=== PATIENT | female | born 1960 | race Caucasian/White ===

== ENCOUNTER 2021-06-02 11:00 | Emergency (ER) | payer OTHER, SELFPAY ==
[2021-06-02 11:04] VITALS: BP 170/62; PULSE 81; RESP 18; TEMP 36.7; O2SAT 99; BMI 25.2
--- NOTE | 2021-06-02 11:16 | ED.GENADULT ---
HPI - General Adult General Chief complaint: Skin/Abscess/Foreign Body Stated complaint: rash Time Seen by Provider: 06/02/21 11:15 Source: patient and family Limitations: no limitations History of Present Illness HPI narrative: Patient presents with a rash to her left upper extremity greater than right also neck. Symptoms ongoing the past few days similar episode in the past many years prior. Patient denies any pain but states the rash is very itchy. Patient has no known allergic contacts denies taking any medications denies history of diabetes . Patient denies shortness of breath fever chills. Related Data Previous Rx's Medication Instructions Recorded prednisone 40 mg PO DAILY 5 Days #10 tab 06/02/21 Allergies Allergy/AdvReac Type Severity Reaction Status Date / Time morphine [MORPHINE] Allergy Mild SLIGHT Unverified 08/09/20 16:46 RASH/ITCHING ciprofloxacin [Cipro] Allergy Unknown Verified 06/13/16 00:00 From Cipro Allergy Mild RASH Uncoded 08/09/20 16:46 Review of Systems Constitutional: Constitutional: Denies chills, Denies fever(s) and Denies headache(s) Eyes: Eyes: Denies diplopia ENT: Denies headache(s), Denies lip swelling, Denies sore throat and Denies throat swelling Cardiovascular: Cardiovascular: Denies chest pain and Denies dyspnea Respiratory: Respiratory: Denies cough and Denies dyspnea Gastrointestinal: Gastrointestinal: Denies nausea and Denies vomiting Musculoskeletal: Musculoskeletal: Reports no additional musculoskeletal complaints Neurologic: Denies headache(s) Allergic/Immunologic: Allergic/Immunologic: Denies lip swelling, Denies seasonal rhinorrhea and Denies throat swelling Comments: Positive rash to bilateral upper extremities neck PMFSH Past Medical History Attestation statement: The following information was validated with the patient. Social History Social History Advance Directives: No Advance Directives Information Provided: No Physical Exam Vital Signs: Vital Signs: Last Vital Signs Temp 98.0 F 06/02/21 11:04 Pulse 81 06/02/21 11:04 Resp 18 06/02/21 11:04 BP 170/62 H 06/02/21 11:04 Pulse Ox 99 06/02/21 11:04 Body Mass Index 25.2 vital signs have been reviewed as normal and appeared to be correct. Blood pressure normal. Heart rate normal. Respiration rate normal. Temperature normal. Oxygen saturation normal. Appearance: Alert. Oriented X3. No acute distress. Head: Normal external exam. Normocephalic. Atraumatic. No Cesar signs noted. No raccoon eyes noted Eyes: PERRLA. EOMI. ENT: Pharynx normal. Uvula midline. M Neck: Soft full range of motion CVS: Heart regular rate and rhythm no murmurs and rubs Respiratory: Breath sounds are clear to auscultation bilaterally. No accessory muscle use noted. Skin: patient has a raised maculopapular rash in left upper extremity greater than the right also axillas. Extremities: No lower extremity edema. Extremities exhibit normal range of motion. Extremities nontender. Neuro: Oriented X 3. No motor deficit. No sensory deficit. Reflexes normal. Course Course Course Narrative: Contact dermatitis zoster Urticaria Symptoms consistent with contact dermatitis will treat at this time. Discharge Plan Discharge Clinical Impression: Contact dermatitis Patient Disposition: Home, Self-Care Instructions: Contact Dermatitis (ED) Additional Instructions: continues to take Benadryl 2 tabs or 50 mg every 6 hours for itching Prescriptions: New prednisone 20 mg tablet 40 mg PO DAILY 5 Days Qty: 10 RF: 0
[2021-06-02] MEDS: predniSONE 20 MG TABLET 60 MG PO (11:29)
== END 2021-06-02 11:34 | disposition home or self-care (01) ==
PROVIDERS: Emergency Provider Emergency Medicine
DX: L25.9 Unspecified contact dermatitis, unspecified cause (principal)
CPT/HCPCS: 99283

== ENCOUNTER 2021-06-03 10:41 | Emergency (ER) | payer OTHER, SELFPAY ==
[2021-06-03 10:42] VITALS: BP 152/63; PULSE 83; RESP 16; TEMP 35.9; O2SAT 98; BMI 26.1
--- NOTE | 2021-06-03 11:07 | ED_ITS ---
HPI - General Adult General Chief complaint: General Medical Stated complaint: rash ? allergic reaction to meds Time Seen by Provider: 06/03/21 11:07 History of Present Illness HPI narrative: 60-year-old female who re-presented to the ED today with continued rash. Patient was seen yesterday and diagnosed with contact dermatitis started on prednisone and discharged home with outpatient follow-up. Patient returns today due to continued and progressive rash. Is worried that the prednisone prescribed may be contributing to worsening symptoms. Patient denies any chest pain or shortness of breath denies any nausea vomiting or diarrhea. Denies any known fevers or chills although states she did feel very flushed and hot last evening. States the rash has been ongoing for 1 week. States she exhausted Benadryl at home without improvement of symptoms. States she is using [id number] hydrocortisone without improvement of symptoms. States she does not have primary care at this time as she is trying to switch physicians. Due to concerning continued discomfort she felt she needed to be seen. Related Data Previous Rx's Medication Instructions Recorded prednisone 40 mg PO DAILY 5 Days #10 tab 06/02/21 cetirizine [Zyrtec] 10 mg PO DAILY PRN #30 tab 06/03/21 hydrocortisone 1 appl TOPICAL QD-TID PRN #454 g 06/03/21 Allergies Allergy/AdvReac Type Severity Reaction Status Date / Time morphine [MORPHINE] Allergy Mild SLIGHT Unverified 08/09/20 16:46 RASH/ITCHING ciprofloxacin [Cipro] Allergy Unknown Verified 06/13/16 00:00 From Cipro Allergy Mild RASH Uncoded 08/09/20 16:46 Review of Systems Review of Systems: Constitutional : No Weight loss, No Fever, No Chills, No Night Sweats, No Fatigue, No Malaise ENT/Mouth : No Hearing loss, No Ear Pain, No Nasal Congestion, No Sinus Pain, No Hoarseness, No sore throat, No Rhinorrhea, No Swallowing Difficulty Eyes: No Eye Pain, No Swelling, No Redness, No Foreign Body, No Discharge, No Vision Changes Cardiovascular : No Chest Pain, No SOB, No Dyspnea on Exertion, No Orthopnea, No Edema, No Palpitations Respiratory : No Cough, No Sputum, No Wheezing, No Smoke Exposure, No Dyspnea Gastrointestinal : No Nausea, No Vomiting, No Diarrhea, No Constipation, No abdominal Pain, No Hematochezia, No Melena Genitourinary : no irregular bleeding, No Dysuria, No Urinary Frequency, No Hematuria, No Urinary Incontinence, No Urgency, No Flank Pain, No Urinary Flow Changes, No Hesitancy Musculoskeletal : No joint pain, No Myalgias, No Joint Swelling Skin : + rash Neuro : No Weakness, No Numbness, No Paresthesias, No Loss of Consciousness, No Dizziness, No Headache Psych : No Anxiety/Panic, No Depression, No SI/HI/AH/VH, No Social Issues, Heme/Lymph: No Bruising, No Bleeding,No Lymphadenopathy Endocrine : No Polyuria, No Polydipsia, No Temperature Intolerance [facility] Past Medical History Attestation statement: The following information was validated with the patient. Source: old records reviewed and obtained from family Social History Social History Advance Directives: No Advance Directives Information Provided: No Physical Exam Vital Signs: Vital Signs: Last Vital Signs Temp 96.7 F L 06/03/21 10:42 Pulse 83 06/03/21 10:42 Resp 16 06/03/21 10:42 BP 152/63 H 06/03/21 10:42 Pulse Ox 98 06/03/21 10:42 Body Mass Index 26.1 vital signs have been reviewed as normal and appeared to be correct. Blood pressure normal. Heart rate normal. Respiration rate normal. Temperature normal. Oxygen saturation normal. Appearance: Alert. Oriented X3. No acute distress. Head: Normal external exam. Normocephalic. Atraumatic. No Cesar signs noted. No raccoon eyes noted Eyes: Conjunctiva and sclera normal. ENT: EAC normal. Moist mucous membranes. No drooling noted. No muffled voice noted. Neck: Normal inspection. Neck supple. FROM. No meningeal signs. CVS: Pulses normal throughout. Respiratory: No respiratory distress. Painless inspiration. No accessory muscle usage noted Abdomen: No visible injury noted. Back: Full range of motion noted. Skin: Skin warm and dry. Normal skin color. Normal skin turgor. Patient with Mild erythematous rash to anterior chest, bilateral upper extremities and posterior neck. Blanchable nature. No vesicles lesions or ulcerations noted. Extremities: No lower extremity edema. Extremities exhibit normal range of motion. Neuro: Oriented X 3. No motor deficit. No sensory deficit. Medical Decision Making MDM Narrative Medical decision making narrative: Patient's vital signs are stable and she is afebrile. Patient presenting to the emergency department with reports of continued rash. Patient awake alert appropriate vital signs within normal limits no acute distress at this time. Rash is not alarming with blanchable nature mild erythema only involving the upper extremities/ chest. Patient has not taken any additional medications since time of discharge yesterday have encouraged her to continue steroids I do not think she is having an anaphylactic reaction from them. Also advised adding Zyrtec as Benadryl has not been helpful and higher concentration of hydrocortisone. Will refer to Dermatology as this is occurred many times in patient's life and she is quite frustrated. No other secondary signs of acute injury or trauma. Will discharge home at this time. Discharge Plan Discharge Clinical Impression: Rash Patient Disposition: Home, Self-Care Instructions: Contact Dermatitis (ED) Additional Instructions: You were seen in the emergency department today for continued rash. It is still uncertain what is causing a rash but there is no concerning signs or symptoms on today's exam. Please continue prednisone as directed this is important as it will likely be the only thing that helps her rash acutely. Start Zyrtec daily, you will additionally prescribe increased concentration of hydrocortisone cream in attempts to help rash. Avoid hot showers. Follow up w [facility] in the next week if symptoms persist. Return to the ED if he developed nausea, fever, worsening or progressive rash that spreads rapidly or shortness of breath. Prescriptions: New hydrocortisone 2.5 % ointment 1 appl topical QD-TID PRN (Reason: itching) Qty: 454 RF: 0 cetirizine [Zyrtec] 10 mg tablet 10 mg PO DAILY PRN (Reason: allergy symptoms) Qty: 30 RF: 0 No Action prednisone 20 mg tablet 40 mg PO DAILY 5 Days Qty: 10 RF: 0 Referrals: Mariella Dean MD [Physician] - 1 week Interventions: ED Discharge Assessment Last Done: 06/03/21 12:09 Discharge Date/Time: 06/03/21 12:12 Print Language: [place]ian
[2021-06-03] MEDS: predniSONE 20 MG TABLET 40 MG PO (11:55)
== END 2021-06-03 12:12 | disposition home or self-care (01) ==
PROVIDERS: Emergency Provider Emergency Medicine
DX: R21 Rash and other nonspecific skin eruption (principal)
CPT/HCPCS: 99283

== ENCOUNTER 2022-04-09 13:14 | Outpatient (REF) | payer OTHER, SELFPAY ==
[2022-04-09 14:00] LABS: COVID-19 Test Positive (Negative)
== END 2022-04-09 13:15 | disposition home or self-care (01) ==
LOC: HO.LAB 13:14
PROVIDERS: Visit Provider Internal Medicine
DX: Z20.822 Contact with and (suspected) exposure to COVID-19 (principal)
CPT/HCPCS: 87635; C9803